=== PATIENT | male | born 1990 | race Caucasian/White ===

== ENCOUNTER 2017-02-27 10:00 | Inpatient (IN) | payer OTHER ==
[~2017-02-27] VITALS: Ht 177.8 cm; Wt 77.1 kg
--- NOTE | ~2017-02-27 | HP ---
Unit #: [id number] #: [id number] Patient: ERIBERTO DURANT [id number] [place] [address] [id number] MR#: [id number] NAME: ERIBERTO DURANT. ROOM: P171 Age: 26 Sex: M Admission Date: 02/27/2017 : 1990 Attending Physician: Yogesh Long M.D. Admitting Physician: Yogesh Long M.D. HISTORY AND PHYSICAL HISTORY OF PRESENT ILLNESS Eriberto is a 26 year old admitted to [facility] because of his abuse of alcohol. PAST MEDICAL HISTORY 1. Long history of alcohol abuse. 2. History of illicit substance abuse to include IV heroin, amphetamines, benzodiazepines, Suboxone and methadone. 3. High blood pressure. PAST SURGICAL HISTORY Nothing reported. ALLERGIES No known drug allergies. SOCIAL HISTORY Smokes one pack per day. Drinks at least a fifth of liquor on a daily basis. Admits to a long history of illicit substance abuse. FAMILY HISTORY Medically noncontributory. REVIEW OF SYSTEMS CONSTITUTIONAL: No fever or chills. HEENT: Denies any sore throat, ear pain or runny nose. CARDIOVASCULAR: Denies chest pain, irregular heart rhythm or palpitations. CHEST: Denies shortness of breath or cough. No hemoptysis. GASTROINTESTINAL: Denies nausea, vomiting, diarrhea or chronic constipation. ENDOCRINE: Denies history of increased thirst or urination. No recent significant weight loss or gain. GENITOURINARY: Denies dysuria, frequency, or hematuria. SKIN: Denies any rashes. HEMATOLOGIC: Denies history of increased bleeding or bruising. MUSCULOSKELETAL: Denies any hot, swollen joints. No generalized muscle pain. NEUROLOGIC: Denies problems with vision or speech. No frequent, severe headaches. No numbness, tingling or weakness in any extremities. Denies loss of bladder or bowel control. CURRENT MEDICATIONS Unit #: [id number] #: [id number] Patient: ERIBERTO DURANT Detox protocol. PHYSICAL EXAMINATION GENERAL: Alert, well-nourished, in no apparent distress. VITAL SIGNS: Blood pressure 134/82, heart rate 94, respirations 16, temperature 98.6. WEIGHT: 170 pounds. HEIGHT: 5'10". SKIN: Warm and dry without rash or lesion. HEENT: Normocephalic. TMs not viewed. Oral and nasal passages clear. Conjunctivae clear. Pupils equal, round and reactive to light and accommodation. Extraocular movements intact. NECK: Supple without lymphadenopathy or thyromegaly. HEART: Regular rate and rhythm without murmur. LUNGS: Clear. ABDOMEN: Soft, nontender. : Not done. EXTREMITIES: No evidence of cyanosis, clubbing or edema. Moves all extremities without focal deficit. NEUROLOGICAL: Grossly within normal limits. Cranial Nerves: II: Visual soriano are intact. III, IV AND : Extraocular movements are intact. Pupils are equal, round and reactive to light. V: Facial sensation is grossly normal. VII: Facial movements and expression are normal. VIII: Auditory acuity grossly intact. IX, X: Uvula is midline. Phonation is normal. XI: Patient shrugs shoulders and turns head normally. XII: Tongue protrudes in the midline. Sensory and Motor Function: Sensory and motor sensation is grossly normal. Motor: moves all extremities well. Coordination: Gait is normal. Deep Tendon Reflexes: Intact. IMPRESSION Psychiatric admission. RECOMMENDATIONS PSYCHIATRIC: Per psychiatrist. MEDICAL: I see no contraindications to participating in facility's activities. MEDICAL PROGNOSIS Good. MEDICAL CONDITION Stable. Dictated by... Sherrie Arguelles PElleAElle-Ngoc. for Sania Davis/ezequiel TD: 03/01/2017 00:20 JOB #: [id number] Unit #: [id number] #: [id number] Patient: ERIBERTO DURANT HISTORY AND PHYSICAL Page 1 of 1 X Sherrie Arguelles X HISTORY AND PHYSICAL
--- NOTE | ~2017-02-27 | PA ---
Unit #: [id number] #: [id number] Patient: VINCE DURANT [id number] [facility] [address] [place] [address] [id number] I MR#: [id number] NAME: VINCE DURANT. ROOM: P171 Age: 26 Sex: M Admission Date: 02/27/2017 : 1990 Date of Assessment: 02/28/2017 Attending Physician: Yogesh Long M.D. Admitting Physician: Yogesh Long M.D. PSYCHIATRIC ASSESSMENT DATE OF SERVICE 02/28/2017. INFORMANTS The patient reliable; [facility], reliable. CHIEF COMPLAINT "Alcohol withdrawal." HISTORY OF PRESENT ILLNESS Mr. Barajas is a 26-year-old man who reports that he recently relocated to [place] for increasing psychosocial support. He has been trying to get of alcohol for some time and said he could not tolerate detox in the outpatient setting. He had no suicidal ideation, intent, or plan and was admitted for alcohol detox. PAST PSYCHIATRIC HISTORY Significant for 2 previous inpatient stays in rehab in the [facility] where the patient previously resided. He has no other psychiatric complaints and no current psychiatric medications. FAMILY PSYCHIATRIC HISTORY None reported. SOCIAL HISTORY The patient is a single, heterosexual male who is staying with a friend temporarily. 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 He has significant financial stress at this time. PAST MEDICAL HISTORY No chronic medical problems. MEDICATIONS None currently. ALLERGIES No known medication allergies. SUBSTANCE USE HISTORY As noted. The patient has multiyear history of abusing alcohol and has abused amphetamines, opiates, benzodiazepines, Suboxone, and methadone in the past. Unit #: [id number] #: [id number] Patient: VINCE DURANT MENTAL STATUS EXAMINATION Rivera presented as a mildly disheveled man who appeared older than his stated age. He was cooperative with the examination. His speech was spontaneous and easily understood. His musculoskeletal examination was calm. His mood was anxious and irritable with a congruent affect. He was alert and fully oriented. His memory and concentration were fair to good. His thought processes were goal directed with no active psychosis. He denied suicidal ideation, intent, or plan. Insight and judgment, fair. Fund of knowledge and abstraction, fair. ASSETS AND LIABILITIES Assets; the patient knows local resources and has assistance from the community. Liabilities; include lack of stable housing, income, and sobriety. ADMITTING DIAGNOSES AXIS I: Alcohol dependence with withdrawal, uncomplicated, F10.230. AXIS II: No diagnosis. AXIS III: Alcohol withdrawal syndrome. AXIS IV: AXIS V: PSYCHIATRIC PLAN The patient was admitted and placed on the alcohol detox protocol. He will enroll in dual diagnosis groups and activities. A physical examination will be conducted by the house physician and reviewed. TREATMENT GOALS Resolution of intoxication, improvement in insight, and improvement in coping skills. DISCHARGE PLANNING Follow up with [facility] for chemical dependence in the community. ESTIMATED LENGTH OF STAY 5 days. Dictated by... Yogesh Long M.D. REHAN/tiffanie TD: 03/01/2017 17:17 JOB #: [id number] Unit #: [id number] #: [id number] Patient: VINCE DURANT PSYCHIATRIC ASSESSMENT Page 1 of 1 X Yogesh Long MD X PSYCHIATRIC ASSESSMENT
--- NOTE | ~2017-02-27 | PN ---
Unit #: [id number] #: [id number] Patient: VINCE DURANT [id number] [facility] [address] [place] [address] [id number] I MR#: [id number] NAME: VINCE DURANT ROOM: P171 Age: 26 Sex: M Admission Date: 02/27/2017 : 1990 Attending Physician: Yogesh Long M.D. Admitting Physician: Sania Feldman PROGRESS NOTES DATE OF SERVICE 03/01/2017 DISCUSSION Rivera continues to have active detox symptoms today. His mood is anxious with congruent affect. He is alert and fully oriented. There is no evidence of psychosis and no suicidal ideation. His sleep is erratic. ASSESSMENT Opiate dependence. PLAN Continue detox protocol and use of p.r.n. sleep medications. Dictated by... Sania FeldmanH/ezequiel TD: 03/03/2017 03:37 JOB #: [id number] [facility] PROGRESS NOTES Page 1 of 1 X Yogesh Long MD PROGRESS NOTE
--- NOTE | ~2017-02-27 | PN ---
Unit #: [id number] #: [id number] Patient: VINCE DURANT [id number] [facility] [address] [place] [address] [id number] I MR#: [id number] NAME: VINCE DURANT ROOM: P171 Age: 26 Sex: M Admission Date: 02/27/2017 : 1990 Attending Physician: Yogesh Long M.D. Admitting Physician: Sania Feldman PROGRESS NOTES DATE 03/02/2017 DISCUSSION The patient is up and around today although he still continues to have active detox symptoms. He is mildly anxious in his mood with a congruent affect. He is alert and fully oriented with no active psychosis and no suicidal ideation. ASSESSMENT Opioid dependence. PLAN Continue current treatment plan. Dictated by... Sania FeldmanH/bzg TD: 03/03/2017 08:33 JOB #: [id number] [facility] PROGRESS NOTES Page 1 of 1 X Yogesh Long MD X PROGRESS NOTE
[2017-02-28 10:47] LABS: BASOPHIL% 0.6 % (0-2.5); EOSINOPHIL# 0.3 X10e3 (0-0.7); EOSINOPHIL% 5.9 % (0.0-7.0); HEMATOCRIT 45.4 % (38.0-50.0); HEMOGLOBIN 15.6 gm/dL (13.0-16.0); LYMPHOCYTE% 39.9 % (17.0-45.0); MEAN CELL VOLUME 88.8 FL (83-96); MEAN CORPUSCULAR HEMOGLOBIN 30.5 PG (28-34); MEAN CORPUSCULAR HGB CONC 34.3 g/dL (30-36); MEAN PLATELET VOLUME 8.1 FL (6.5-11.5); MONOCYTE# 0.3 X10e3 (0-1.0); NEUTROPHIL# 2.3 X10e3 (1.5-7.1); NEUTROPHIL% 46.6 % (40-75); PLATELET COUNT 186 X10e3 (140-420); RED BLOOD COUNT 5.11 X10e (3.90-5.60); RED CELL DISTRIBUTION WIDTH 13.9 % (11.0-15.5); WHITE BLOOD COUNT 4.9 X10e3 (4.0-10.5)
[2017-02-28 11:04] LABS: DIFF IND NO
[2017-02-28 11:07] LABS: ALBUMIN SERUM 4.2 g/dL (3.5-5.0); BILIRUBIN,TOTAL 0.8 mg/dL (0.2-2.0); BUN/CREATININE RATIO 13.33; CALCIUM SERUM 9.5 mg/dL (8.4-10.2); CREATININE SERUM 0.6 mg/dL (0.6-1.4); GLOM FILT RATE Estimated 137.8 mL/min (>60); PROTEIN TOTAL SERUM 6.7 g/dL (6.0-8.3)
== END 2017-03-03 12:10 | disposition home or self-care (01) | DRG 897 ==
LOC: P1E 12:26
PROVIDERS: Psychiatry & Neurology Psychiatry
PROC: HZ2ZZZZ Detoxification Services for Substance Abuse Treatment (ICD-10-PCS; principal; 2017-02-28)
DX: F10.230 Alcohol dependence with withdrawal, uncomplicated (principal); F11.20 Opioid dependence, uncomplicated
CPT/HCPCS: 80053; 85025